=== PATIENT | female | born 1975 | race Caucasian/White ===

== ENCOUNTER 2019-12-23 07:15 | Outpatient (CLI) | payer BC, SELFPAY ==
--- NOTE | ~2019-12-23 | MM_ITS ---
EXAMINATION: MM screening sury BI w sherrill HISTORY: Screening mammogram TECHNIQUE: Craniocaudal and mediolateral oblique 3-D tomosynthesis images were obtained and synthetic 2-D images were generated. CAD analysis was submitted and interpreted. COMPARISON: No prior mammogram is available for comparison at this institution. BREAST PARENCHYMAL COMPOSITION: The breasts are heterogeneously dense, which may obscure small masses . FINDINGS: RIGHT BREAST: There is no evidence of suspicious mass, calcification, or architectural distortion to suggest malignancy. LEFT BREAST: There is a 6 mm mass in the anterior third of the slightly inner breast best appreciated on the mediolateral oblique view. IMPRESSION: 1. Left breast mass which may represent the patient's baseline however no comparison is currently demetrius ilable. 2. Comparison with prior mammograms is necessary. BI-RADS Category 0: Incomplete: Needs comparison with prior mammograms. Reviewed, dictated and finalized at location A. IMPRESSION: 1. Left breast mass which may represent the patient's baseline however no abhi rison is currently available. 2. Comparison with prior mammograms is necessary. BI-RADS Category 0: Incomplete: Needs comparison with prior mammograms.
== END 2019-12-23 07:16 | disposition home or self-care (01) ==
PROVIDERS: PCP Internal Medicine
DX: Z12.31 Encounter for screening mammogram for malignant neoplasm of breast (principal); R92.8 Other abnormal and inconclusive findings on diagnostic imaging of breast
CPT/HCPCS: 77063; 77067

== ENCOUNTER 2022-07-07 07:50 | Emergency (ER) | payer BC, SELFPAY ==
[2022-07-07 07:54] VITALS: BP 125/58; PULSE 90; RESP 16; TEMP 36.3; O2SAT 100
[2022-07-07 10:00] LABS: Basophils Percent Auto 0.4 % (0.2-1.2); Eosinophils Absolute Auto 0.1 K/mm3 (0-0.3); Eosinophils Percent Auto 1.3 % (0-4.4); Hematocrit 36.5 % (37.0-47.0); Hemoglobin 12.1 g/dL (12.0-15.0); Immature Granulocyte Absolute 0.07 K/mm3 (0.00-0.031); Immature Granulocyte Percent A 0.7 % (0-0.5); Lymphocytes Absolute Auto 1.08 K/mm3 (0.9-3.2); Lymphocytes Percent Auto 11.6 % (18.3-44.2); Mean Corpuscular HGB Conc 33.2 g/dl (32-36); Mean Corpuscular Volume 90.3 fl (80-100); Mean Platelet Volume 9.8 fl (7.4-10.4); Monocytes Absolute Auto 0.6 K/mm3 (0.1-0.6); Monocytes Percent Auto 6.3 % (2.6-8.5); Neutrophils Absolute Auto 7.5 K/mm3 (1.3-6.7); Neutrophils Percent Auto 79.7 % (45.5-73.1); Platelet Count Result 295 k/mm3 (150-375); Red Blood Count 4.04 M/mm3 (4.2-5.4); Red Cell Distribution Width 12.9 % (11.5-14.5); White Blood Count 9.4 K/mm3 (4.5-10.0)
[2022-07-07 10:13] LABS: Anion Gap 6 mmol/L (8-16); Blood Urea Nitrogen 15 mg/dL (7-17); Calcium 8.4 mg/dL (8.4-10.2); Carbon Dioxide 27 mmol/L (22-30); Chloride 94 mmol/L (98-107); Estimated CRCL calculation 73 ml/min; Estimated Glomerular Filt Rate > 60; Glucose 96 mg/dL (65-110); Potassium 4.9 mmol/L (3.4-5.0); Sodium 127 mmol/L (137-145)
[2022-07-07] MEDS: SODIUM CHLORIDE 0.9% IV 1,000 ML 999 ML IV CONT (10:17)
[2022-07-07] MEDS: methylPREDNISolone SOD SUCC 125 MG VIAL IV PUSH (10:18)
[2022-07-07] MEDS: METOCLOPRAMIDE HCL INJ 10 MG/2 ML VIAL IV PUSH (10:18)
[2022-07-07] MEDS: diphenhydrAMINE HCl INJ 50 MG/ML VIAL 25 MG IV PUSH (10:18)
[2022-07-07] MEDS: KETOROLAC 30 MG/ML VIAL (*BKC) IV PUSH (10:18)
[2022-07-07 10:31] VITALS: BP 117/80; PULSE 84; RESP 18; O2SAT 100
--- NOTE | 2022-07-07 10:59 | ED.HA ---
HPI - Headache General Chief Complaint: Headache Stated Complaint: Headache Time Seen by Provider: 07/07/22 09:33 History of Present Illness HPI Narrative: 46-year-old female history of anxiety presents to the emergency room for evaluation of a generalized headache that has been present since yesterday. Denies any known injury or trauma. States the headache is global and feels like a squeezing sensation. It is photosensitive. Accompanied with nausea. States is taken ibuprofen on 3 different occasions with no resolution of her symptoms. Denies any dizziness or visual or hearing changes. States headache came on gradually. Related Data Home Medications Medication Instructions Recorded Confirmed Bacillus coagulans 10 billion cell cell PO 12/14/19 06/07/22 capsule,delayed release (Probiotic (B. coagulans)) cetirizine 10 mg tablet (Zyrtec) 10 mg PO DAILY 12/14/19 06/07/22 cholecalciferol (vitamin D3) 50 50 mcg PO DAILY 12/14/19 06/07/22 mcg (2,000 unit) capsule norethindrone 1 mg-ethinyl 1 tablet PO DAILY 03/02/21 06/07/22 estradiol 10 mcg (24)-iron 10 mcg(2) tablet (Lo Loestrin Fe) Allergies Allergy/AdvReac Type Severity Reaction Status Date / Time azithromycin Allergy Unknown heartburn Verified 07/07/22 09:38 Review of Systems Review of Systems: CONSTITUTIONAL: Denies fever, chills, or sweats. EYES: Denies visual changes, redness, or discharge. ENT: Denies rhinorrhea, congestion, sore throat, or otalgia. CARDIOVASCULAR: Denies chest pain, palpitations, or edema. RESPIRATORY: Denies cough or dyspnea. GASTROINTESTINAL: Denies abdominal pain, nausea, vomiting, or diarrhea. GENITOURINARY: Denies dysuria or hematuria. SKIN: Denies rash or itching. MUSCULOSKELETAL: Denies back pain, joint pain, or myalgia. NEUROLOGIC: Reports headache PSYCHIATRIC: Denies anxiety or depression. [facility]LY [facility] Social History Social History Smoking status: Never smoker Alcohol intake: current Lack of Transportation: No Lack of Food: Never True Current Housing: I Have Housing Concerned About Future Housing: No Difficulty Paying Gas/Electric Bills: No Difficulty Paying for Meds: No Currently Unemployed: No Education: Bachelor's Degree Difficulty w/ Childcare or Family Care: No Exam Narrative: GENERAL: Well-appearing, well-nourished, no physical limitations, and in no acute distress. HEAD: Normocephalic, atraumatic. EYES: Conjunctivae normal, PERRLA and EOMI. NECK: Supple. No meningeal signs. No adenopathy or masses. CHEST: Clear to auscultation. No respiratory distress. No wheezes rales or rhonchi. HEART: Regular rate and rhythm. No murmur heard. Normal peripheral pulses. ABDOMEN: Soft, nontender, nondistended, normal active bowel sounds. EXTREMITIES: Normal range of motion. No edema. No clubbing or cyanosis SKIN: Warm, dry, no rash. No noted wounds NEURO: No focal deficits. Alert and oriented x3. MAEW. CN's II-XI intact bilaterally, normal gait PSYCH: Cooperative. Normal mood and affect. Course Vital Signs Vital signs: Vital Signs Temperature 36.3 C L 07/07/22 07:54 Pulse Rate 90 07/07/22 07:54 Respiratory Rate 16 07/07/22 07:54 Blood Pressure 125/58 L 07/07/22 07:54 Pulse Oximetry 100 07/07/22 07:54 Temperature 36.3 C L 07/07/22 07:54 Pulse Rate 84 07/07/22 10:31 Respiratory Rate 18 07/07/22 10:31 Blood Pressure 117/80 07/07/22 10:31 Pulse Oximetry 100 07/07/22 10:31 MDM - Headache Lab Data 07/07/22 09:54 07/07/22 09:54 Labs: Lab Results 07/07/22 07/07/22 Range/Units 09:54 09:54 WBC 9.4 (4.5-10.0) K/mm3 RBC 4.04 L (4.2-5.4) M/mm3 Hgb 12.1 (12.0-15.0) g/dL Hct 36.5 L (37.0-47.0) % MCV 90.3 (80-100) fl MCH 30.0 (26-34) pg MCHC 33.2 (32-36) g/dl RDW 12.9 (11.5-14.5) % Plt Count 295 (150-375) k/mm3 MPV 9.8 (7.4-10.4) fl Im
== END 2022-07-07 11:26 | disposition home or self-care (01) ==
PROVIDERS: Emergency Provider Nurse Practitioner Family; PCP Internal Medicine
DX: R51.9 Headache, unspecified (principal)
CPT/HCPCS: 36415; 80048; 85025; 96361; 96374; 96375; 99284; J1200; J1885; J2765; J2930; J7030

== ENCOUNTER 2023-02-09 09:10 | Emergency (ER) | payer BC, SELFPAY ==
--- NOTE | ~2023-02-09 | CT_ITS ---
EXAMINATION: CTA chest PE protocol DATE: 02/09/2023 10:11 INDICATION: Shortness of breath TECHNIQUE: Computed tomography (CT) pulmonary angiogram of the chest was performed with 100 mL Omnipa que-350 intravenous contrast. Additional 3D reconstructions utilizing coronal maximum intensity proje ction (MIP) were performed. Automated exposure control and iterative reconstruction technique were em ployed. The dose-length product was 258.77 mGy-cm. COMPARISON: None FINDINGS: Excellent contrast opacification of the pulmonary arteries. There is mild streak artifact from dense contrast in the superior vena cava and right atrium. Mild scattered respiratory motion artifact which does not significantly limit evaluation. No pulmonary embolism. Small calcified right lower lobe nod ule consistent with old granulomatous disease. No pneumonia, pulmonary edema, pleural effusion or pne umothorax. Heart size is normal. No pericardial effusion. Thoracic aorta is normal in caliber with no dissection. No pathologically enlarged thoracic lymphadenopathy. Mild thoracic dextrocurvature. Visu alized upper abdomen is unremarkable. IMPRESSION: 1. No pulmonary embolism or other acute cardiopulmonary disease. Reviewed, dictated and finalized at location A.
[2023-02-09 09:13] VITALS: BP 143/78; PULSE 107; RESP 18; TEMP 36.6; O2SAT 100
--- NOTE | 2023-02-09 09:52 | ED.GENADULT ---
HPI - General Adult General Chief complaint: Upper Respiratory Infection Stated complaint: shortness of breath Time Seen by Provider: 02/09/23 09:16 History of Present Illness HPI narrative: 47-year-old female presented ED for evaluation of tachycardia and shortness of breath. Patient just got back from [facility] on the . Patient then developed COVID symptoms on the second tested positive on the third. Patient presented to the ED today for worsening shortness of breath and some heart palpitations. Patient is also on estradiol patch. Patient denies any prior history of PE or DVT. Related Data Home Medications Medication Instructions Recorded Confirmed Bacillus coagulans 10 billion cell cell PO 12/14/19 06/07/22 capsule,delayed release (Probiotic (B. coagulans)) cetirizine 10 mg tablet (Zyrtec) 10 mg PO DAILY 12/14/19 06/07/22 cholecalciferol (vitamin D3) 50 50 mcg PO DAILY 12/14/19 06/07/22 mcg (2,000 unit) capsule norethindrone 1 mg-ethinyl 1 tablet PO DAILY 03/02/21 06/07/22 estradiol 10 mcg (24)-iron 10 mcg(2) tablet (Lo Loestrin Fe) Allergies Allergy/AdvReac Type Severity Reaction Status Date / Time azithromycin Allergy Unknown heartburn Verified 07/07/22 09:38 Review of Systems Review of Systems: All systems reviewed & are unremarkable except as noted in HPI and below PMFSH Social History Social History Smoking status: Never smoker Alcohol intake: current Lack of Transportation: No Lack of Food: Never True Current Housing: I Have Housing Concerned About Future Housing: No Difficulty Paying Gas/Electric Bills: No Difficulty Paying for Meds: No Currently Unemployed: No Education: Bachelor's Degree Difficulty w/ Childcare or Family Care: No Exam Narrative: APPEARANCE: Well appearing, no pain, no distress, well-nourished. HEAD: normocephalic, atraumatic. EYES: PERRLA/EOMI, conjunctivae clear. NOSE: Normal no drainage NECK: Supple. No adenopathy, no masses. RESPIRATORY: Mild wheeze CARDIOVASCULAR: Regular rate and rhythm without murmurs rubs or gallops. ABDOMINAL: Soft, nontender, nondistended, normal bowel sounds MUSCULOSKELETAL: Moves all extremities. Strength/ROM intact, No edema, No calf tenderness. NEURO: Alert. Cranial nerves II through XII intact. Grossly intact SKIN: Warm, dry. Normal Color Course Course Emergency Course: 47-year-old female presented ED for evaluation for tachycardia shortness of breath while positive for COVID. Patient will be scanned for a pulmonary embolism. Patient was updated on the plan for PE study. Patient did feel improved with a breathing treatment. CT scan was negative for pulmonary embolism. Patient was provided a butyryl inhaler with spacer. Patient was updated results of her work-up and was encouraged of close follow-up with her primary care physician. Patient was also educated on reasons to return to emergency department. All questions and concerns were addressed Vital Signs Vital signs: Vital Signs Temperature 97.8 F 02/09/23 09:13 Pulse Rate 107 H 02/09/23 09:13 Respiratory Rate 18 02/09/23 09:13 Blood Pressure 143/78 H 02/09/23 09:13 Pulse Oximetry 100 02/09/23 09:13 Oxygen Delivery Room Air 02/09/23 09:13 Temperature 97.8 F 02/09/23 09:13 Pulse Rate 90 02/09/23 12:00 Respiratory Rate 16 02/09/23 12:00 Blood Pressure 108/67 02/09/23 12:00 Pulse Oximetry 100 02/09/23 12:00 Oxygen Delivery Room Air 02/09/23 09:13 Medical Decision Making Differential Diagnosis Differential Diagnosis: Pneumothorax, pneumonia, pulmonary embolism, COVID Vital Signs Vital Signs: Vital Signs Temperature 97.8 F 02/09/23 09:13 Pulse Rate 107 H 02/09/23 09:13 Respiratory Rate 18 02/09/23 09:13 Blood Pressure 143/78 H 02/09/23 09:13 Pulse Oximetry 100 02/09/23 09:13 Oxygen Delivery Room Air 02/09/23
[2023-02-09 09:54] LABS: Basophils Percent Auto 0.8 % (0.2-1.2); Eosinophils Absolute Auto 0.2 K/mm3 (0-0.3); Eosinophils Percent Auto 4.1 % (0-4.4); Hematocrit 42.7 % (37.0-47.0); Hemoglobin 14.1 g/dL (12.0-15.0); Immature Granulocyte Absolute 0.02 K/mm3 (0.00-0.031); Immature Granulocyte Percent A 0.5 % (0-0.5); Lymphocytes Percent Auto 25.9 % (18.3-44.2); Mean Corpuscular Hemoglobin 29.4 pg (26-34); Mean Platelet Volume 10.2 fl (7.4-10.4); Monocytes Absolute Auto 0.4 K/mm3 (0.1-0.6); Monocytes Percent Auto 11.1 % (2.6-8.5); Neutrophils Absolute Auto 2.2 K/mm3 (1.3-6.7); Neutrophils Percent Auto 57.6 % (45.5-73.1); Platelet Count Result 233 k/mm3 (150-375); Red Cell Distribution Width 13.1 % (11.5-14.5); White Blood Count 3.9 K/mm3 (4.5-10.0)
[2023-02-09 10:06] LABS: Alanine Aminotransferase 43 U/L (6-35); Albumin Level 4.4 g/dL (3.5-5.1); Alkaline Phosphatase 81 U/L (38-126); Anion Gap 7 mmol/L (8-16); Aspartate Amino Transferase 43 U/L (14-36); Bilirubin,Total 0.5 mg/dL (0.2-1.3); Blood Urea Nitrogen 14 mg/dL (7-17); Calcium 9.1 mg/dL (8.4-10.2); Carbon Dioxide 25 mmol/L (22-30); Chloride 99 mmol/L (98-107); Estimated CRCL calculation 72 ml/min; Estimated Glomerular Filt Rate > 60; Glucose 111 mg/dL (65-110); Potassium 4.2 mmol/L (3.4-5.0); Sodium 131 mmol/L (137-145)
[2023-02-09 10:08] LABS: Estimated CRCL calculation 65 ml/min; Estimated Glomerular Filt Rate > 60
[2023-02-09] MEDS: ALBUTEROL SULFATE NEB 2.5 MG/3 ML INH INHALATION (10:09)
[2023-02-09 10:18] VITALS: PULSE 102; RESP 18
[2023-02-09 10:28] VITALS: PULSE 122; RESP 18
[2023-02-09] MEDS: SODIUM CHLORIDE 0.9% IV 1,000 ML 999 ML IV CONT (11:04)
[2023-02-09 12:00] VITALS: BP 108/67; PULSE 90; RESP 16; O2SAT 100
== END 2023-02-09 12:00 | disposition home or self-care (01) ==
PROVIDERS: Emergency Provider Emergency Medicine; PCP Internal Medicine
DX: U07.1 COVID-19 (principal)
CPT/HCPCS: 36415; 71275; 80053; 85025; 94640; 96360; 99284; J7030; Q9967

== ENCOUNTER 2023-06-14 13:33 | Emergency (ER) | payer BC, SELFPAY ==
[2023-06-14 13:34] VITALS: BP 151/82; PULSE 89; RESP 12; TEMP 37.1; O2SAT 98
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
== END 2023-06-14 16:32 | disposition home or self-care (01) ==
PROVIDERS: Emergency Provider Physician Assistant; PCP Physician Assistant
DX: S01.81XA Laceration without foreign body of other part of head, initial encounter (principal); W45.8XXA Other foreign body or object entering through skin, initial encounter
CPT/HCPCS: 12011; 99282

== ENCOUNTER 2023-09-17 02:56 | Day surgery (SDC) | payer BC, SELFPAY ==
[2023-07-01 13:57] VITALS: BMI 24.8
[2023-09-09 13:57] VITALS: BMI 23.9
--- NOTE | 2023-09-15 09:06 | SUR.PREOP ---
Patient called regarding upcoming procedure. Voicemail left regarding appointment times.
[2023-09-17 08:12] VITALS: BP 125/96; PULSE 85; RESP 18; TEMP 36.3; O2SAT 100; BMI 24.0
[2023-09-17] MEDS: LACTATED RINGERS 1,000 ML 150 ML IV CONT (08:15)
--- NOTE | 2023-09-17 08:39 | P.PNAN_ITS ---
Anes - Initial Pre Proc Eval Procedure: Operation Date: 09/17/23 09:30 Proposed Procedures p Screening Colonoscopy - Blaze Kamara MD Date/Time: 09/17/23 08:39 Surgeon: Blaze Kamara MD Pre Op Diagnosis: neoplasm screening Patient Data Age: 48 Gender: F Height: 1.6 m Weight: 61.5 kg Last Vital Signs Temp 97.3 F L 09/17/23 08:12 Pulse 85 09/17/23 08:12 Resp 18 09/17/23 08:12 BP 125/96 H 09/17/23 08:12 Pulse Ox 100 09/17/23 08:12 O2 Del Method Room Air 09/17/23 08:12 Allergies Allergy/AdvReac Type Severity Reaction Status Date / Time azithromycin Allergy Unknown heartburn Verified 09/17/23 08:11 Home Medications Medication Instructions Recorded Confirmed Type Bacillus coagulans 10 billion cell 1 cell PO DAILY 12/14/19 09/17/23 History capsule,delayed release (Probiotic (B. coagulans)) cetirizine 10 mg tablet (Zyrtec) 10 mg PO DAILY 12/14/19 09/17/23 History cholecalciferol (vitamin D3) 50 50 mcg PO DAILY 12/14/19 09/17/23 History mcg (2,000 unit) capsule multivitamin (Daily Multi-Vitamin 1 tablet PO DAILY 03/17/23 09/17/23 History tablet) escitalopram oxalate 20 mg tablet 20 mg PO DAILY #90 tabs 06/27/23 09/17/23 Rx (Lexapro) alprazolam 0.5 mg tablet 0.5 mg PO DAILY PRN Anxiety 07/01/23 09/17/23 History minoxidil 2.5 mg tablet 1.25 mg PO DAILY 07/01/23 09/17/23 History norethindrone 1 mg-ethinyl 1 tablet PO DAILY 07/01/23 09/17/23 History estradiol 10 mcg (24)-iron 10 mcg(2) tablet (Lo Loestrin Fe) Patient hx anesthesia problems: none Family hx anesthesia problems: none Results Review: All pre-operative results and documents have been reviewed as part of the pre- operative evaluation. PMFSH Social History Social History Smoking status: Never smoker Alcohol intake: current Alcohol use details: rarely Substance use type: does not use Lack of Transportation: No Lack of Food: Never True Current Housing: I Have Housing Concerned About Future Housing: No Difficulty Paying Gas/Electric Bills: No Difficulty Paying for Meds: No Currently Unemployed: No Education: Bachelor's Degree Difficulty w/ Childcare or Family Care: No Living arrangements: other Additional living arrangements comments: with kumar Cho Final PreProcedure Day of Procedure 09/17/23 08:39 Patient weight: normal Heart: regular rate and rhythm Lungs: clear to auscultation Airway: Mallampati scale class II Neurological: alert and oriented Last oral intake: >/= 8 hours ASA classification: II Emergent: no Anesthetic plan: proceed Anesthesia type and monitoring: general GIVS and standard monitoring Results Review: All pre-operative results and documents have been reviewed as part of the pre- operative evaluation. Informed Consent: The patient's anesthetic plan and its attendant risks and benefits were discussed with the patient/family/POA. Questions were solicited and answers provided to the satisfaction of the patient/family/POA.
--- NOTE | 2023-09-17 08:58 | PM.HPGS ---
History of Present Illness History of Present Illness Consent: Risks, benefits, and alternatives have been discussed and questions answered. Patient agrees to proceed with procedure. Chief complaint: neoplasm screening Narrative: Chaya Sorto is a 48 year old female here for screening colonoscopy, had one in her 20's for abdominal pain Review of Systems Review of Systems: All systems reviewed & are unremarkable except as noted in HPI and below PMFSH Past Medical History Medical History (Updated 09/17/23 @ 09:01 by Blaze Kamara MD) Colon cancer screening Social History Social History Smoking status: Never smoker Alcohol intake: current Alcohol use details: rarely Substance use type: does not use Lack of Transportation: No Lack of Food: Never True Current Housing: I Have Housing Concerned About Future Housing: No Difficulty Paying Gas/Electric Bills: No Difficulty Paying for Meds: No Currently Unemployed: No Education: Bachelor's Degree Difficulty w/ Childcare or Family Care: No Living arrangements: other Additional living arrangements comments: with sp Meds Home Medications and Allergies Home Medications Medication Instructions Recorded Confirmed Type Bacillus coagulans 10 billion cell 1 cell PO DAILY 12/14/19 09/17/23 History capsule,delayed release (Probiotic (B. coagulans)) cetirizine 10 mg tablet (Zyrtec) 10 mg PO DAILY 12/14/19 09/17/23 History cholecalciferol (vitamin D3) 50 50 mcg PO DAILY 12/14/19 09/17/23 History mcg (2,000 unit) capsule multivitamin (Daily Multi-Vitamin 1 tablet PO DAILY 03/17/23 09/17/23 History tablet) escitalopram oxalate 20 mg tablet 20 mg PO DAILY #90 tabs 06/27/23 09/17/23 Rx (Lexapro) alprazolam 0.5 mg tablet 0.5 mg PO DAILY PRN Anxiety 07/01/23 09/17/23 History minoxidil 2.5 mg tablet 1.25 mg PO DAILY 07/01/23 09/17/23 History norethindrone 1 mg-ethinyl 1 tablet PO DAILY 07/01/23 09/17/23 History estradiol 10 mcg (24)-iron 10 mcg(2) tablet (Lo Loestrin Fe) Allergies Allergy/AdvReac Type Severity Reaction Status Date / Time azithromycin Allergy Unknown heartburn Verified 09/17/23 08:11 Vital Signs Vital Signs - 24 hr 09/17/23 08:12 Temperature 97.3 F L Pulse Rate 85 Respiratory Rate 18 Blood Pressure 125/96 H Pulse Oximetry 100 Oxygen Delivery Room Air Exam Const: General: comfortable and no acute distress HENMT: Face/Nose/Sinus: Normal nares present Eyes: General: appearance normal, both eyes and all related structures Neck: Neck: no JVD Resp: Auscultation: clear to auscultation bilaterally Cardio: Rate: regular rate Rhythm: regular rhythm GI: Inspection: non-distended GI Palp: Yes Soft to palpation Skin: General skin exam: normal color Neuro: General: gait normal Speech: normal speech Extrem: General: normal to inspection Psych: Mental Status: mental status grossly normal Assessment and Plan Assessment and plan (1) Colon cancer screening: Code(s): Z12.11 - Encounter for screening for malignant neoplasm of colon Status: Acute Assessment and Plan: colonoscopy
--- NOTE | 2023-09-17 09:09 | SUR.PREOP ---
pt unable to void for urine pregnancey, tried three times. pt states has had a vasectomy, she takes control for hrt. discussed with dr cabrales, states ok if pt cannot get specimen.
[2023-09-17 09:24] VITALS: BP 97/62; PULSE 65; RESP 22; O2SAT 100
[2023-09-17 09:34] VITALS: BP 107/78; PULSE 80; RESP 21; O2SAT 100
[2023-09-17 09:44] VITALS: BP 109/68; PULSE 65; RESP 13; O2SAT 100
== END 2023-09-17 09:47 | disposition home or self-care (01) ==
PROVIDERS: PCP Physician Assistant; Visit Provider Internal Medicine Gastroenterology
PROC: 0DJD8ZZ Inspection of Lower Intestinal Tract, Via Natural or Artificial Opening Endoscopic (ICD-10-PCS; CPT 45378; principal; 2023-09-17 09:30)
DX: Z12.11 Encounter for screening for malignant neoplasm of colon (principal); Z79.890 Hormone replacement therapy; Z79.899 Other long term (current) drug therapy
CPT/HCPCS: 45378; J2704; J7120